=== PATIENT | female | born 1945 | race Caucasian/White ===

== ENCOUNTER → 2017-01-27 | Day surgery (SDC) | payer OTHER ==
[~2017-01-27] MED LIST: ADVAIR 250-501 EACH IH; ALBUTEROL17 GM INH; BACTRIM DS TABL1 TA2 PO; CALCIUM500 M1 PO; CENTRUM PO; CRESTOR10 MG PO; CYMBALTA30 MG PO; EFFEXOR XR PO; ESCITALOPRAM OX10 MG PO; PRILOSEC PO; TUDORZA PRESS400 MCG IH; VITAMIN D31000 UNI2 PO; ZESTRIL30 MG PO; ZYRTEC PO
--- NOTE | ~2017-01-27 | OR ---
Unit #: [id number] #: [id number] Patient: ALIZA ARAIZA [id number] [address] [place], [place] [address] [id number] O MR#: [id number] NAME: ALIZA ARAIZA ROOM: Date of Procedure: 01/27/2017 Admission Date: 01/27/2017 Surgeon: Dexter Banuelos M.D. : 1945 Attending Physician: Dexter Banuelos M.D. Primary Care Physician: Sharon Dowell M.D. PROCEDURE OPERATIVE NOTE PREOPERATIVE DIAGNOSES 1. Back pain. 2. Radiculopathy. 3. Degenerative disk disease. 4. Spinal stenosis. 5. Degenerative facet disease. POSTOPERATIVE DIAGNOSES 1. Back pain. 2. Radiculopathy. 3. Degenerative disk disease. 4. Spinal stenosis. 5. Degenerative facet disease. PROCEDURE PERFORMED Lumbar epidural steroid injection with intravenous sedation, fluoroscopic guidance, and needle localization. HISTORY The patient is a 71-year-old female with long history of worsening back pain, more recent three to four month history of worsening radicular pain on the left lower extremity. This has not settled with conservative treatment. Workup demonstrated multilevel multifactorial degenerative disk and facet disease, especially from L3 through S1. There was severe facet disease at L3-4 and L5-S1 as well as severe stenosis at 3,4 and moderately severe at 4, 5, 1. Symptom complex was consistent with pathology, so plan was trial of epidural steroids the risks and benefits of all which have been reviewed. PROCEDURE The patient was placed in a seated position. Standard monitors were applied. Two milligrams of Versed were given for sedation and anxiolysis which were adequate. Vital signs remained stable. A sterile prep and drape down to the lumbar area was performed. The skin at the L4-5 level was localized with 1% lidocaine. An 18-gauge Nutraspacet[employer] needle was then advanced via loss of resistance technique under fluoroscopic guidance in toward the epidural space. The patient did not complain of pain or paraesthesia during needle advancement. After confirming proper needle-tip positioning with fluoroscopy and radiographic contrast, 80 mg of Depo Medrol and 4 mL of 0.125% bupivacaine were deposited. The patient tolerated the procedure otherwise well and was discharged to the recovery room in stable condition. Unit #: [id number] #: [id number] Patient: ALIZA ARAIZA Dictated by... Duarte Peters/nellie TD: 01/27/2017 11:03 JOB #: [id number] PROCEDURE OPERATIVE NOTE Page 1 of 1 X Dexter Banuelos MD X PROCEDURE OPERATIVE NOTE
== END | disposition home or self-care (01) ==
LOC: CCSC 07:54
DX: M51.16 Intervertebral disc disorders with radiculopathy, lumbar region (principal); M51.17 Intervertebral disc disorders with radiculopathy, lumbosacral region; M53.86 Other specified dorsopathies, lumbar region; M53.87 Other specified dorsopathies, lumbosacral region; M48.06 Spinal stenosis, lumbar region; M48.07 Spinal stenosis, lumbosacral region; I10 Essential (primary) hypertension; K21.9 Gastro-esophageal reflux disease without esophagitis; J44.9 Chronic obstructive pulmonary disease, unspecified; J45.909 Unspecified asthma, uncomplicated; F41.9 Anxiety disorder, unspecified; F32.9 Major depressive disorder, single episode, unspecified; E66.01 Morbid (severe) obesity due to excess calories; Z88.0 Allergy status to penicillin; Z88.1 Allergy status to other antibiotic agents; Z88.8 Allergy status to other drugs, medicaments and biological substances; Z79.899 Other long term (current) drug therapy
CPT/HCPCS: J1040; J2250

== ENCOUNTER → 2017-02-10 | Day surgery (SDC) | payer OTHER ==
--- NOTE | ~2017-02-10 | OR ---
Unit #: [id number] #: [id number] Patient: ALIZA ARAIZA [id number] [address] [place], [place] [address] [id number] O MR#: [id number] NAME: ALIZA ARAIZA ROOM: Date of Procedure: 02/10/2017 Admission Date: 02/10/2017 Surgeon: Dexter Banuelos M.D. : 1945 Attending Physician: Dexter Banuelos M.D. Primary Care Physician: Sharon Dowell M.D. OPERATIVE REPORT PREOPERATIVE DIAGNOSES Back pain, radiculopathy, degenerative disk disease, spinal stenosis. POSTOPERATIVE DIAGNOSES Back pain, radiculopathy, degenerative disk disease, spinal stenosis. PROCEDURE PERFORMED Lumbar epidural steroid injection with intravenous sedation and fluoroscopic guidance for needle localization. INDICATIONS FOR PROCEDURE The patient is a 71-year-old female with long history of back pain recently worsened with left lower extremity radiculopathy. She failed to settle with conservative, rehabilitative, and medical management. Workup demonstrated degenerative change with [id number] stenosis from L3 through S1. There also was quite severe facet disease through these levels. The patient's physical examination is most consistent with radicular component of the spinal stenosis, so decision was made to give an initial epidural steroid injection, which was done 2 weeks ago, which resulted in a tremendous settling of all components of her pain. She is sleeping much better, much better able for ADLs. She had a bit of return over the last day or two, but still is doing significantly better. So, we are going to proceed with a repeat injection based on history, pathology, symptomatology, and treatment options. DESCRIPTION OF PROCEDURE The patient was placed in a seated position. Standard monitors were applied. 2 mg of Versed were given for sedation and anxiolysis, which were adequate. Vital signs remained stable. Sterile prep and drape then of the lumbar area was performed. The skin at the L4-L5 level was localized with 1% lidocaine. An 18-gauge [employer] needle was then advanced via loss of resistance technique and fluoroscopic guidance in toward the epidural space. After confirming proper positioning with fluoroscopy and radiographic contrast, 80 mg of Depo-Medrol and 4 mL of 0.125% bupivacaine were deposited. The patient tolerated the procedure otherwise well and was discharged to the recovery room in stable condition. Dictated by... Detxer Banuelos M.D. [facility] Unit #: [id number] #: [id number] Patient: ALIZA ARAIZA TD: 02/11/2017 01:08 JOB #: [id number] OPERATIVE REPORT Page 1 of 1 X Dexter Banuelos MD X PROCEDURE OPERATIVE NOTE
== END | disposition home or self-care (01) ==
LOC: CCSC 07:08
PROVIDERS: Pain Medicine Pain Medicine
PROC: 3E0R33Z Introduction of Anti-inflammatory into Spinal Canal, Percutaneous Approach (ICD-10-PCS; principal; 2017-02-10 08:00)
DX: M51.17 Intervertebral disc disorders with radiculopathy, lumbosacral region (principal); M48.07 Spinal stenosis, lumbosacral region; I10 Essential (primary) hypertension; K21.9 Gastro-esophageal reflux disease without esophagitis; J44.9 Chronic obstructive pulmonary disease, unspecified; J45.909 Unspecified asthma, uncomplicated; F41.9 Anxiety disorder, unspecified; F32.9 Major depressive disorder, single episode, unspecified
CPT/HCPCS: J1040; J2250

== ENCOUNTER → 2017-02-24 | Day surgery (SDC) | payer OTHER ==
--- NOTE | ~2017-02-24 | OR ---
Unit #: [id number] #: [id number] Patient: ALIZA ARAIZA [id number] [address] [place], [place] [address] [id number] O MR#: [id number] NAME: ALIZA ARAIZA ROOM: Date of Procedure: 02/24/2017 Admission Date: 02/24/2017 Surgeon: Dexter Banuelos M.D. : 1945 Attending Physician: Dexter Banuelos M.D. Primary Care Physician: Sharon Dowell M.D. OPERATIVE REPORT PREOPERATIVE DIAGNOSES Back pain, radiculopathy, spinal stenosis, degenerative disk disease, and degenerative facet disease. POSTOPERATIVE DIAGNOSES Back pain, radiculopathy, spinal stenosis, degenerative disk disease, and degenerative facet disease. PROCEDURE PERFORMED Lumbar epidural steroid injection with intravenous sedation and fluoroscopic guidance for needle localization. INDICATIONS FOR PROCEDURE The patient is a 71-year-old female, who presented with long history of back and intermittent lower extremity pain. Over the last several months, she had significant worsening of the left lower extremity pain. Workup demonstrated multilevel multifactorial degenerative disk disease with spinal stenosis, most significant at the L3-L4 level. She has failed extensive attempts of conservative treatment. Decision was made to give her trial of epidural steroids. Two were done at this point over the last month that given additive significant reduction in all components of her pain and greatly later increased her activity level. Based on her good response, we are going to proceed with a final injection at this point. Based on this patient's pathology, she will likely require injections in the future. A single injection would probably very reasonable based on the response she has gotten pathology and expectations. DESCRIPTION OF PROCEDURE The patient was placed in a seated position. Standard monitors were applied. 2 mg of Versed were given for sedation and anxiolysis, which were adequate. Vital signs remained stable. Sterile prep and drape then of lumbar area was performed. The skin at the L3-L4 level was localized with 1% lidocaine. An 18-gauge [employer] needle was then advanced via loss of resistance technique and fluoroscopic guidance in toward the epidural space. After confirming proper positioning with fluoroscopy and radiographic contrast, 80 mg of Depo-Medrol and 4 mL of 0.125% bupivacaine were deposited. The patient tolerated the procedure otherwise well and was discharged to the recovery room in stable condition. Dictated by... Dexter Banuelos M.D. Unit #: [id number] #: [id number] Patient: ALIZA ARAIZA LHP/modl TD: 02/24/2017 14:25 JOB #: [id number] CC: Sharon Dowell M.D. OPERATIVE REPORT Page 1 of 1 X Dexter Banuelos MD X PROCEDURE OPERATIVE NOTE
== END | disposition home or self-care (01) ==
LOC: CCSC 06:56
DX: M51.16 Intervertebral disc disorders with radiculopathy, lumbar region (principal); M47.26 Other spondylosis with radiculopathy, lumbar region; M48.06 Spinal stenosis, lumbar region; J44.9 Chronic obstructive pulmonary disease, unspecified; I10 Essential (primary) hypertension; K21.9 Gastro-esophageal reflux disease without esophagitis
CPT/HCPCS: J1040; J2250